=== PATIENT | male | born 1940 | race Caucasian/White ===

== ENCOUNTER 2021-03-04 04:45 | Outpatient (CLI) | payer OTHER, SELFPAY ==
[2021-03-04 14:50] LABS: Abs Immature Grans 0.02 10^3/uL (0.0-0.06); Absolute Basophil Count 0.05 10^3/uL (0.0-0.2); Absolute Eosinophil Count 0.11 10^3/uL (0.0-0.7); Absolute Lymphocyte Count 1.35 10^3/uL (1.2-3.4); Absolute Monocyte Count 0.71 10^3/uL (0.1-0.8); Absolute Neutrophil Count 5.92 10^3/uL (1.2-6.7); Basophils % 0.6; Eosinophils % 1.3; HGB 14.3 g/dL (13.5-17.5); Immature Grans % 0.2; Lymphocytes % 16.5; MCH 32.7 pg (27.0-33.0); MCHC 34.9 % (32.0-36.0); MCV 93.8 fL (80-95); MPV 10.9 fL (8.0-11.0); Monocytes % 8.7; Neutrophils % 72.7; Nucleated RBC 0 %; Platelet Count 192 10^3/uL (130-400); RBC 4.37 10^6/uL (4.36-5.78); RDW 12.1 % (11.8-14.1); RDW-SD 41.9 fL; WBC 8.16 10^3/uL (4.4-10.8)
== END 2021-03-04 04:46 | disposition home or self-care (01) ==
LOC: LBO 04:46
PROVIDERS: Visit Provider Internal Medicine
DX: C61 Malignant neoplasm of prostate (principal); C79.51 Secondary malignant neoplasm of bone
CPT/HCPCS: 36415; 85025

== ENCOUNTER 2021-04-21 13:36 | Emergency (ER) | payer OTHER, SELFPAY ==
[2021-04-21] VITALS (59 sets, daily range): BP systolic 86–194; BP diastolic 61–106; PULSE 58–78; RESP 7–20; TEMP 34.4–36.6; O2SAT 93–98
[2021-04-21] MEDS: Lidocaine 2% Jelly 11 ML SYR (14:00)
[2021-04-21 14:23] LABS: Bilirubin Negative (Negative); Blood Small (Negative); Clarity Clear (Clear); Glucose Negative (Negative); Ketones Negative (Negative); Leukocyte Esterase Negative (Negative); Nitrite Negative (Negative); Urobilinogen 0.2 EU/dL (Up TO 0.2)
--- NOTE | 2021-04-21 14:30 | RT.EKG_ITS ---
APPROVED REPORT Exam: Resting ECG Reason for Exam: chest pain Patient Location: E HR:61 bpm ECG Measurements Heart Rate 61 AXIS NH 98 P 0 QRSd 123 QRS 3 QT 484 T 40 QTc 490 Conclusion Atrial-sensed ventricular-paced rhythm...ventricular pacing tracks p-waves no STEMI, non-diagnostic EKG
--- NOTE | 2021-04-21 14:30 | DI.RAD_ITS ---
Exam(s) XR CHEST 2V PA LATERAL EXAM: XR CHEST 2V PA LATERAL CLINICAL HISTORY: chest pain TECHNIQUE: 2D digital imaging was performed. COMPARISON: No exams were available for comparison FINDINGS: HEART: Normal. Aorta mildly tortuous PULMONARY VASCULATURE: Normal. LUNGS: Clear. Emphysematous changes lung apices. PLEURAL SPACE: No pleural effusion or pneumothorax. BONE:Degenerative changes right shoulder. High riding right humeral head consistent with chronic rot ator cuff tear. Mild degenerative changes in the spine. Right double lumen central venous catheter with tip projecting in upper right atrium. Cardiac device left inferior chest. IMPRESSION: No acute abnormality. DATA REPOSITORY: RADIATION DOSE DELIVERED:
[2021-04-21 14:32] LABS: Bacteria Negative HPF (Negative); C & S Indicated? No; Casts Negative LPF (Negative); Crystals Negative HPF (Negative); Epithelial Cells Negative HPF (Negative); Mucus Negative (Negative); RBC 20-50 HPF (0-2); WBC 0-2 HPF (0-5)
--- NOTE | 2021-04-21 14:32 | W.ED.GENAD ---
Discharge Plan Disposition Patient Disposition: STILL A PATIENT Condition: Serious Discharge Details Clinical Impression: Elevated troponin, Urinary retention, Chest pain Primary Care Provider: Unknown,Unknown ED Provider: Elieser Emanuel Home Meds and New Rx's Prescriptions: No Action multivitamin Tablet 1 tab PO DAILY RF: 0 hydrochlorothiazide 25 mg Tablet 25 mg PO DAILY RF: 0 irbesartan 150 mg Tablet 150 mg PO DAILY RF: 0 cholecalciferol (vitamin D3) [Vitamin D3] 50 mcg (2,000 unit) Tablet 50 mcg PO DAILY RF: 0 PreserVision AREDS-2 250-90-40-1 mg Capsule 2 tab PO DAILY RF: 0 potassium chloride 20 mEq Tablet Extended Release 20 meq PO DAILY RF: 0 Discharge Data Discharge Date/Time-TO BE ENTERED AT DEPARTURE: 04/21/21 20:09 Medical Decision Making This is an 81-year-old gentleman presenting for urinary retention that began this morning, subsequently tells me that he chest pain-pressure as well. Bladder scan greater than 600 cc of urine. Plan is to place a Ibrahim catheter, give full dose aspirin, initiate cardiac work-up. Given that he continues to have mild pressure and is hypertensive, will provide nitro Initial nitro did nothing, but the second nitro resulted in the patient becoming pain-free and his pressure decreasing into the 80s over 60s, given 1 L of normal saline pressure now in the 120s over 80s. Patient drained over 1000 cc of saline into the Ibrahim catheter. Patient reports significant improvement. Initial laboratory values reveal a white blood cell count of 7.25 hemoglobin 14.3 hematocrit 42.2 platelet count 121 sodium 144 potassium 3.4, creatinine 0.9 with a GFR greater than 60. Magnesium 2.1. I was contacted with a troponin of critical value 0.29. He is normotensive and pain-free at this moment but given his elevated troponin, recent cardiac pacemaker, and procedure taking place at [facility] on , he definitely requires admission but I will contact [facility] as I believe transfer to their facility is completely reasonable. I was able to speak with the director of occupational therapy, Dr. Heranndez, who believes transfer to his facility this is reasonable. Because the patient is asymptomatic does not want to initiate any heparin. Believe that monitoring and serial troponin is reasonable while he is here at our facility, Dr. Sams will be the excepting; however, transfer likely will not happen to later this evening or early tonight. I discussed this with both patient and his significant other who were agreeable to plan. All appropriate paperwork signed. Patient remains asymptomatic and hemodynamically stable. I received a call [phone], critical troponin of 2.18. He remains asymptomatic and hemodynamically stable. I immediately placed a call to [facility], and I was able to speak with Dr. Hrenandez at [phone]. Recommends initiating heparin bolus and dip, holding plavix. Patient without any clear contraindications, order placed. At time of signout patient is asymptomatic, awaiting bed availability for transfer. Lab Data Lab results reviewed: Yes I reviewed the patient's lab results. ECG Data Attestation: I personally reviewed and interpreted this ECG (s) as follows: Interpretation: Please see official report Fide. Atrial sensed ventricular paced rhythm, ventricular rate of 61 HPI General Mode of arrival: ambulatory. Date/Time Provider Initiated Documentation: 04/21/21 13:44. Limitations to Documentation: no limitations. Information obtained by: patient and family. HPI Narrative: This is an 81-year-old gentleman who presents to the ER today with his , past medical history of prostate cancer, hypertension, for urinary retention. Patient states that he often has a hard time urinating given his prostate cancer and his current treatment. Earlier today he was at [facility] for an appointment where he was having leukapheresis performed and subsequently on the drive back home he developed urinary retention. He states he last had a normal urine output around 7:00 this morning. Patient denies any other symptoms. He states that he is scheduled to be seen at [facility] on for the leukapheresis infusion. He tells me he had a pacemaker placed at [facility] approximately 4-5 weeks ago. He has no other acute concerns however upon review symptoms he does admit that while he was trying to urinate in the car today he developed a superior chest pressure, dull ache, 2 or 3 out of 10. He denies recent illness or trauma. Denies headache, visual changes, neck pain, shortness of breath, back pain, abdominal pain, nausea, vomiting, hematuria, pain or swelling in his legs. Patient denies cardiac history other than his pacemaker. Patient also states that he had a port placed last month secondary to his ongoing treatments. Related Data Home Medications Medication Instructions Recorded Confirmed cholecalciferol (vitamin D3) 50 mcg PO DAILY 04/21/21 04/21/21 [Vitamin D3] hydrochlorothiazide 25 mg PO DAILY 04/21/21 04/21/21 irbesartan 150 mg PO DAILY 04/21/21 04/21/21 multivitamin 1 tab PO DAILY 04/21/21 04/21/21 potassium chloride 20 meq PO DAILY 04/21/21 04/21/21 vit C,I-Xi-ncwqd-lutein-zeaxan 2 tab PO DAILY 04/21/21 04/21/21 [PreserVision AREDS-2] Allergies Allergy/AdvReac Type Severity Reaction Status Date / Time horse serum Allergy Uncoded 04/21/21 14:47 General Stated Complaint: Urinary BRANDY: 2 Review of Systems Constitutional Constitutional: Denies fatigue, Denies fever(s) and Denies headache(s) ENT Ears, Nose, Mouth, and Throat: Denies headache(s) and Denies neck pain Cardiovascular Cardiovascular: Reports chest pain and Denies dyspnea Respiratory Respiratory: Denies cough and Denies dyspnea Gastrointestinal Gastrointestinal: Denies abdominal pain, Denies nausea and Denies vomiting Genitourinary Genitourinary: Denies hematuria and Reports urinary hesitancy Musculoskeletal Musculoskeletal: Denies back pain and Denies neck pain Integumentary/Breasts Skin/Breast: Denies rash Neurologic Neurologic: Denies headache(s) Endocrine Endocrine: Denies fatigue Hematologic/Lymphatic Hematologic/Lymphatic: Denies easy bleeding and Denies easy bruising PFSH Social History Smoking/Tobacco Use Status: Former Tobacco Use Smoking risk assessment performed?: Yes Alcohol Intake: never Drug use: Never Substance use type: does not use Do you feel safe at home: Yes Do you feel safe in your relationship?: Yes Exam Const General: cooperative, healthy appearing and no acute distress Orientation: alert, awake and oriented x3 HENMT Head: normal to inspection, normocephalic and atraumatic Face and sinus: normal facial exam Mouth: moist mucous membranes Throat: posterior oropharynx normal Eyes General: appearance normal, both eyes and all related structures Conjunctivae: conjunctivae normal Neck Neck: normal visual inspection, full ROM, trachea midline, supple and nontender Chest Chest: normal inspection of the chest and normal palpation of entire chest wall Resp Effort & Inspection: normal respiratory effort and able to speak in complete sentences Auscultation: clear to auscultation bilaterally Cardio Rate: regular rate Rhythm: regular rhythm GI Inspection: normal to inspection Palpation: soft, not firm, no guarding, no pulsatile masses and nontender Auscultation: normal bowel sounds Male General Exam: Yes normal external exam Penis: normal penis Meatus: meatus normal Scrotum: scrotum normal Testes: normal Back/Spine/Pelvis Back: No back tenderness Skin General skin exam: no rashes or lesions noted Neuro General: patient alert, patient awake, patient oriented x3, moves all extremities and no focal motor deficits Cognition: normal cognition Speech: speech normal Gait: normal gait Motor: muscle tone normal throughout Sensory Exam: no sensory deficits noted Extrem General: normal to inspection, full ROM, capillary refill normal, no pedal edema and no calf tenderness Psych Appearance: grossly normal Mental Status: mental status grossly normal Course Vital Signs Vital signs: Vital Signs Temperature 34.4 C L 04/21/21 13:40 Pulse 78 04/21/21 13:40 Respiratory Rate 20 04/21/21 13:40 Blood Pressure 194/106 H 04/21/21 13:40 Pulse Oximetry 96 04/21/21 13:40 Temperature 34.4 C L 04/21/21 13:40 Temperature Source Temporal Artery Scan 04/21/21 13:40 Pulse 78 04/21/21 13:40 Respiratory Rate 20 04/21/21 13:40 Respiratory Effort Non-Labored 04/21/21 14:18 Blood Pressure 194/106 H 04/21/21 13:40 Blood Pressure Position Sitting 04/21/21 13:40 Pulse Oximetry 96 04/21/21 13:40 Oxygen Delivery Method Room Air 04/21/21 13:40 Oxygen Flow Rate 0 04/21/21 13:40 Lab/Test Results Lab/Test Results: Laboratory Tests Range/Units 04/21/21 14:10 Urine Color (Yellow) Yellow Urine Clarity (Clear) Clear Urine pH (5-8) 8.0 Ur Specific [place] (1.005-1.025) 1.020 Urine Protein (Negative) mg/dL Negative Urine Ketones (Negative) mg/dL Negative Urine Blood (Negative) Small H Urine Nitrite (Negative) Negative Urine Bilirubin (Negative) Negative Urine Urobilinogen (Up TO 0.2) EU/dL 0.2 Ur Leukocyte Esterase (Negative) Negative Urine Glucose (Negative) mg/dL Negative Critical Care Time Critical Care Time Critical Care Time: Yes Total Critical Care Time: 45 Attestation: Upon my evaluation, this patient had a high probability of clinically significant, life-threatening deterioration due to their current medical conditions, which required my direct attention, intervention, and personal management. I have personally provided greater than 30 minutes of critical care time exclusive of the time spend on separately billable procedures. Time includes obtaining a history, examining the patient, pulse oximetry, review of laboratory data, radiology results, discussion with consultants, arranging urgent treatment with development of a management plan, evaluation of patient's response to treatment, and monitoring for potential decompensation. Interventions were performed as documented above.
[2021-04-21 14:58] LABS: Abs Immature Grans 0.02 10^3/uL (0.0-0.06); Absolute Basophil Count 0.03 10^3/uL (0.0-0.2); Absolute Eosinophil Count 0.07 10^3/uL (0.0-0.7); Absolute Lymphocyte Count 0.81 10^3/uL (1.2-3.4); Absolute Monocyte Count 0.49 10^3/uL (0.1-0.8); Absolute Neutrophil Count 5.83 10^3/uL (1.2-6.7); Basophils % 0.4; HCT 42.2 % (40.0-50.0); HGB 14.3 g/dL (13.5-17.5); Immature Grans % 0.3; Lymphocytes % 11.2; MCH 31.7 pg (27.0-33.0); MCHC 33.9 % (32.0-36.0); MCV 93.6 fL (80-95); MPV 10.5 fL (8.0-11.0); Monocytes % 6.8; Neutrophils % 80.3; Nucleated RBC 0 %; Platelet Count 121 10^3/uL (130-400); RBC 4.51 10^6/uL (4.36-5.78); RDW 12.6 % (11.8-14.1); RDW-SD 43.1 fL; WBC 7.25 10^3/uL (4.4-10.8)
[2021-04-21 15:15] LABS: ALT 20 U/L (16-63); AST 19 U/L (15-37); Albumin 3.4 g/dL (3.4-5.0); Alkaline Phosphatase 142 U/L (46-116); BUN 19 mg/dL (7-18); Bilirubin, Total 0.6 mg/dL (0.2-1.0); CREATININE 0.9 mg/dL (0.70-1.30); Calcium 8.6 mg/dL (8.5-10.1); Chloride 106 mmol/L (98-107); Glucose 123 mg/dL (74-106); Magnesium 2.1 mg/dL (1.8-2.4); Potassium 3.4 mmol/L (3.5-5.1); Sodium 144 mmol/L (136-145); Total Protein 6.4 g/dL (6.4-8.2)
[2021-04-21 15:19] LABS: Troponin I 0.29 ng/mL (<0.06)
[2021-04-21] MEDS: Normal Saline 1,000 ML 1000 ML IV (15:30)
[2021-04-21] MEDS: Aspirin 81 MG CHEW 324 MG CH (16:02)
[2021-04-21 16:42] LABS: Source Nasal/Nares
--- NOTE | 2021-04-21 17:46 | DI.VRAD_ITS ---
PROCEDURE INFORMATION: Exam: XR Chest Exam date and time: 04/21/2021 2:34 PM Age: 81 years old Clinical indication: Other: Chest pain TECHNIQUE: Imaging protocol: XR of the chest. Views: 2 views. COMPARISON: No relevant prior studies available. FINDINGS: Tubes, catheters and devices: Right neck tunnel central venous catheter with tip projecting over the superior cavoatrial junction. Intracardiac device in place. Lungs: Unremarkable. No consolidation. Pleural spaces: Unremarkable. No pleural effusion. No pneumothorax. Heart/Mediastinum: Unremarkable. No cardiomegaly. Bones/joints: High riding right humeral head most likely compatible with chronic rotator cuff injury. Otherwise osseous structures are unremarkable. IMPRESSION: 1. No evidence of acute cardiopulmonary process. 2. High riding right humeral head most likely compatible with chronic rotator cuff injury. Dictated and Authenticated by: Michael Pickering MD. Ordering:KELLY Mon MD
[2021-04-21 17:52] LABS: COVID-19 PCR Negative (Negative)
--- NOTE | 2021-04-21 18:36 | NUR.NOTE ---
Bedside report from BETTINA RN. Patient resting comfortably with no complaint or pain.NFoley catheter to dependent drainage with clear, yellow urine. Vital signs as charted. Bed in lowest, locked position. Call light in reach. Side rails up x2. Lights dimmed for comfort. Awaiting placement at [facility] [place].ursing Note:
[2021-04-21 18:39] LABS: Troponin I 2.18 ng/mL (<0.06)
--- NOTE | 2021-04-21 19:30 | NUR.NOTE ---
Lab called to process additional ordersNursing Note:
[2021-04-21 19:47] LABS: INR 1.1 (0.9-1.1); PTT Activated 22.9 sec (21.0-27.5); Prothrombin Time 10.6 sec (9.3-11.0)
[2021-04-21] MEDS: Heparin 5,000 UNITS/ML VIAL 4000 UNITS IVP (19:55)
--- NOTE | 2021-04-21 20:43 | NUR.NOTE ---
Report to ZULMA Diaz, [facility] [place] [facility]:
== END 2021-04-21 20:09 | disposition still patient (30) ==
PROVIDERS: Emergency Provider Physician Assistant
DX: R07.9 Chest pain, unspecified (principal); R79.89 Other specified abnormal findings of blood chemistry; R33.9 Retention of urine, unspecified
CPT/HCPCS: 36415; 51702; 80053; 87635; 93005; 96361; 96374; 96376; 99291; 71046; 81003; 81015; 83735; 84484; 85025; 85610; 85730; 93010; J1644